=== PATIENT | male | born 1970 | race Caucasian/White ===

== ENCOUNTER 2017-09-14 07:27 | Emergency (ER) | payer MEDICAID ==
[2017-09-14 07:43] VITALS: BP 151/85
[2017-09-14] MEDS: HYDROmorphone 1 MG/ML Syringe IM ONE (08:06)
[2017-09-14] MEDS: Ondansetron 4 MG Tab.DIS PO ONE (08:06)
--- NOTE | 2017-09-14 08:07 | EDM.PDOC ---
ED HPI GENERAL MEDICAL PROBLEM - General Chief Complaint: Upper Extremity Injury/Pain Stated Complaint: ROTATOR CUFF SURG IN [place] Time Seen by Provider: 09/14/17 08:01 Source of Information: Reports: Patient History Limitations: Reports: No Limitations - History of Present Illness INITIAL COMMENTS - FREE TEXT/NARRATIVE: pt had a rotator cuff repair with multiple tears. He is hving very severe pain at this time. He has takn his meds as he should and has iced the area. Onset: Gradual, Other (Pt has had discomfort all nite. ) Duration: Hour(s): Location: Reports: Upper Extremity, Right Associated Symptoms: Reports: No Other Symptoms shoulder Pain Score (Numeric/FACES): 10 - Related Data Allergies Allergy/AdvReac Type Severity Reaction Status Date / Time No Known Allergies Allergy Verified 09/14/17 07:43 Home Meds: Home Meds Ibuprofen [Advil] 200 mg PO Q4H PRN 06/08/14 [History] Hydrocodone/Acetaminophen [[place] 7.5-325 Tablet] 1 tab PO Q4H PRN 09/14/17 [ History] Meloxicam [Mobic] 15 mg PO DAILY 09/14/17 [History] hydrOXYzine HCl [hydrOXYzine] 25 mg PO Q6H PRN 09/14/17 [History] tiZANidine [Zanaflex] 2 mg PO BEDTIME 09/14/17 [History] Past Medical History - Past Health History Medical/Surgical History: Denies Medical/Surgical History - Infectious Disease History Infectious Disease History: Reports: Chicken Pox - Past Surgical History Musculoskeletal Surgical History: Reports: Arthroscopic Knee, Shoulder Surgery, Other (See Below) Other Musculoskeletal Surgeries/Procedures:: neck surgery Social & Family History - Tobacco Use Smoking Status *Q: Former Smoker Years of Tobacco use: 5 Used Tobacco, but Quit: Yes Month/Year Tobacco Last Used: May Second Hand Smoke Exposure: No - Caffeine Use Caffeine Use: Reports: Coffee - Alcohol Use Days Per Week of Alcohol Use: 7 Number of Drinks Per Day: 3 Total Drinks Per Week: 21 - Recreational Drug Use Recreational Drug Use: No Review of Systems - Review of Systems Review Of Systems: See Below Constitutional: Reports: No Symptoms Eyes: Reports: No Symptoms Ears: Reports: No Symptoms Nose: Reports: No Symptoms Mouth/Throat: Reports: No Symptoms Respiratory: Reports: No Symptoms Cardiovascular: Reports: No Symptoms GI/Abdominal: Reports: No Symptoms Genitourinary: Reports: No Symptoms Musculoskeletal: Reports: Other (pain is out ) Skin: Reports: No Symptoms ED EXAM, GENERAL - Physical Exam Exam: See Below Free Text/Narrative:: pt is having very severe pain in the shoulder at the surgical site. He has not been able to rest all nite. Exam Limited By: No Limitations General Appearance: Alert Extremities: No: Other (Pt has sevre pain in the rt shoulder area at the surgical site. He does not appear to have excessive swelling .The color of his hand and fingers are good. ) Neurological: Alert, Oriented, Normal Cognition Psychiatric: Normal Affect Course - Vital Signs Last Recorded V/S: Last Vital Signs Temp 36.6 C 09/14/17 07:42 Pulse 89 09/14/17 07:42 Resp 16 09/14/17 07:42 BP 151/85 H 09/14/17 07:42 Pulse Ox 98 09/14/17 07:42 - Orders/Labs/Meds Meds: Medications Discontinued Medications Generic Name Dose Route Start Last Admin Trade Name Hermelinda PRN Reason Stop Dose Admin Hydromorphone HCl 1 mg 09/14/17 08:00 09/14/17 08:06 Dilaudid IM 09/14/17 08:01 1 mg ONETIME ONE Administration Lorazepam 1 mg 09/14/17 08:33 09/14/17 08:40 Ativan PO 09/14/17 08:34 1 mg ONETIME ONE Administration Ondansetron HCl 4 mg 09/14/17 08:01 09/14/17 08:06 Zofran Odt PO 09/14/17 08:02 4 mg ONETIME ONE Administration Oxycodone/Acetaminophen 1 tab 09/14/17 08:34 09/14/17 08:39 Percocet 325-5 Mg PO 09/14/17 08:35 1 tab ONETIME ONE Administration - Re-Assessments/Exams Free Text/Narrative Re-Assessment/Exam: 09/14/17 08:36 pt was given dilaudid 1mg, aNd percocet 5/325. He was given zoforan 4mg subling and ativan 1mg. Pt is better. 09/14/17 08:47 Departure - Departure Time of Disposition: 08:47 Disposition: Home, Self-Care 01 Condition: Fair Clinical Impression: Pain management, Hx of shoulder surgery - Discharge Information Referrals: PCP,None [Primary Care Provider] - Forms: ED Department Discharge Care Plan Goals: ice to the shoulder. for the next 2 days use percocet 10/325 q4-6h and then resume the norco 7.5/325 #12 If further problems with pain control contact his orthopedic surgeon. ativan 1mg hs #4
[2017-09-14] MEDS: Acetaminophen/oxyCODONE 325-5 MG Tab PO ONE (08:39)
[2017-09-14] MEDS: LORazepam 1 MG Tab PO ONE (08:40)
== END 2017-09-14 09:15 | disposition home or self-care (01) ==
LOC: JP.ED 07:27
DX: M25.511 Pain in right shoulder (principal); Z79.899 Other long term (current) drug therapy; Z87.891 Personal history of nicotine dependence; Z98.890 Other specified postprocedural states
CPT/HCPCS: 96372; 99283; A9270; J1170

== ENCOUNTER 2021-03-23 02:14 | Emergency (ER) | payer OTHER, MEDICAID ==
[2021-03-23 02:32] VITALS: BP 136/86; PULSE 110
--- NOTE | 2021-03-23 02:52 | EDM.PDOC ---
ED HPI GENERAL MEDICAL PROBLEM - General Chief Complaint: General Stated Complaint: LAW, POSSILE DRUGGED Time Seen by Provider: 03/23/21 02:42 Source of Information: Reports: Patient, Police, RN Notes Reviewed History Limitations: Reports: No Limitations - History of Present Illness INITIAL COMMENTS - FREE TEXT/NARRATIVE: 51-year-old gentleman presents emergency department today with concern that he may have been given a drug to change his behavior he is currently under arrest by law enforcement he does not recall any of the events that he is accused of doing. He would like to have his blood checked. He is asymptomatic at this time - Related Data Allergies Allergy/AdvReac Type Severity Reaction Status Date / Time No Known Allergies Allergy Verified 03/23/21 02:32 Home Meds: Home Meds Insulin Glarg,Human.Rec.Analog [Lantus Solostar] 1 unit SQ ASDIRECTED 03/23/21 [History] Liraglutide [Victoza] 1 dose SQ ASDIRECTED 03/23/21 [History] Past Medical History Endocrine/Metabolic History: Reports: Diabetes, Type II - Infectious Disease History Infectious Disease History: Reports: Chicken Pox - Past Surgical History Musculoskeletal Surgical History: Reports: Arthroscopic Knee, Shoulder Surgery, Other (See Below) Other Musculoskeletal Surgeries/Procedures:: neck surgery Social & Family History - Tobacco Use Tobacco Use Status *Q: Never Tobacco User - Caffeine Use Caffeine Use: Reports: Coffee - Alcohol Use Days Per Week of Alcohol Use: 7 Number of Drinks Per Day: 3 Total Drinks Per Week: 21 Date of Last Drink: 03/23/21 - Recreational Drug Use Recreational Drug Use: Yes ED ROS GENERAL - Review of Systems Review Of Systems: See Below Constitutional: Reports: No Symptoms HEENT: Reports: No Symptoms Respiratory: Reports: No Symptoms Cardiovascular: Reports: No Symptoms GI/Abdominal: Reports: No Symptoms ED EXAM, GENERAL - Physical Exam Exam: See Below Exam Limited By: No Limitations General Appearance: Alert, WD/WN, No Apparent Distress Respiratory/Chest: No Respiratory Distress Course - Vital Signs Last Recorded V/S: Last Vital Signs Temp 98.1 F 03/23/21 02:29 Pulse 110 H 03/23/21 02:29 Resp 16 03/23/21 02:29 BP 136/86 03/23/21 02:29 Pulse Ox 98 03/23/21 02:29 - Orders/Labs/Meds Orders: Active Orders 24 hr Category Date Time Status DRUG SCREEN, URINE [URCHEM] Stat Lab 03/23/21 03:37 Ordered ETOH [ETHANOL BLOOD MEDICAL] [CHEM] Stat Lab 03/23/21 03:39 Ordered Labs: Laboratory Tests 03/23/21 03/23/21 03/23/21 Range/Units 03:00 03:00 03:00 WBC 6.7 (4.5-11.0) K/uL RBC 5.21 (4.30-5.90) M/uL Hgb 16.1 H (12.0-15.0) g/dL Hct 47.6 (40.0-54.0) % MCV 91 (80-98) fL MCH 31 (27-31) pg MCHC 34 (32-36) % Plt Count 309 (150-400) K/uL Neut % (Auto) 71.0 H (36-66) % Lymph % (Auto) 21.0 L (24-44) % [place] % (Auto) 6.0 (2-6) % Eos % (Auto) 1.0 L (2-4) % Baso % (Auto) 0.0 (0-1) % Sodium 140 (140-148) mmol/L Potassium 4.1 (3.6-5.2) mmol/L Chloride 102 (100-108) mmol/L Carbon Dioxide 25 (21-32) mmol/L Anion Gap 12.8 (5.0-14.0) mmol/L BUN 25 H (7-18) mg/dL Creatinine 1.0 (0.8-1.3) mg/dL Est Cr Clr Drug Dosing 84.55 mL/min Estimated GFR (MDRD) > 60 (>60) Glucose 129 H (74-106) mg/dL Lactic Acid 2.1 H (0.4-2.0) mmol/L Calcium 9.1 (8.5-10.1) mg/dL Total Bilirubin 0.3 D (0.2-1.0) mg/dL AST 21 (15-37) U/L ALT 36 (12-78) U/L Alkaline Phosphatase 76 (46-116) U/L Total Protein 7.6 (6.4-8.2) g/dL Albumin 4.5 (3.4-5.0) g/dL Globulin 3.1 (2.3-3.5) g/dL Albumin/Globulin Ratio 1.5 (1.2-2.2) Departure - Departure Time of Disposition: 03:51 Disposition: DC/Tfer to Care Home Care 63 Condition: Fair Clinical Impression: Change in behavior - Discharge Information Referrals: Damien Presley MD [Primary Care Provider] - Forms: ED Department Discharge Additional Instructions: Please followup with your primary care provider in 3-5 days if not better, please call return to the emergency department with worsening of symptoms. Sepsis Event Note (ED) - Evaluation Sepsis Screening Result: No Definite Risk - Focused Exam Vital Signs: Vital Signs Temp Pulse Resp BP Pulse Ox 03/23/21 02:29 98.1 F 110 H 16 136/86 98 - My Orders Last 24 Hours: My Active Orders 03/23/21 03:37 DRUG SCREEN, URINE [URCHEM] Stat 03/23/21 03:39 ETOH [ETHANOL BLOOD MEDICAL] [CHEM] Stat - Assessment/Plan Last 24 Hours: My Active Orders 03/23/21 03:37 DRUG SCREEN, URINE [URCHEM] Stat 03/23/21 03:39 ETOH [ETHANOL BLOOD MEDICAL] [CHEM] Stat Plan: Assessment Acuity = acute Site and laterality = temporary change in behavior Etiology = unknown Manifestations = none Location of injury = Home Lab values = CBC, CMP unremarkable urine drug screen is negative Plan We did save one tube of his blood specimen that would be able to be saved for couple weeks certainly if he comes up with some new information that may help decide if there is specific substance we could go after and look for otherwise he is released law enforcement This note was dictated using [employer] voice recognition software please call with any questions on syntax or grammar.
== END 2021-03-23 04:14 ==
LOC: JP.ED 02:14
DX: F91.9 Conduct disorder, unspecified (principal); E11.9 Type 2 diabetes mellitus without complications; Z79.4 Long term (current) use of insulin
CPT/HCPCS: 36415; 80053; 80305-QW; 80307; 83605; 85025; 99285